=== PATIENT | male | born 1960 | race Caucasian/White ===

== ENCOUNTER 2017-01-21 18:42 | Emergency (ER) | payer OTHER ==
[2017-01-21] MEDS ORDERED: Albuterol 0.083% 2.5 MG/3 ML Neb Soln NEB ONE (19:45)
[2017-01-21] MEDS ORDERED: methylPREDNISolone Sodium Succinate 125 MG/2 ML SDV IVPUSH ONE (19:45)
[2017-01-21 20:03] LABS: CHLORIDE,CL 104 mmol/L (101-111); SODIUM,NA 137 mmol/L (135-145)
[2017-01-21 20:16] VITALS: BP 130/60
[2017-01-21] MEDS ORDERED: Potassium Chloride 10 MEQ Tab.ER PO ONE (20:30)
--- NOTE | 2017-01-21 20:45 | EDM.PDOC ---
ED HPI GENERAL MEDICAL PROBLEM - General Chief Complaint: Allergic Reaction Stated Complaint: ALERGIC REACTION [id number] Time Seen by Provider: 01/21/17 19:10 Source of Information: Reports: Patient History Limitations: Reports: No Limitations - History of Present Illness INITIAL COMMENTS - FREE TEXT/NARRATIVE: C/o difficulty swallowing and having a hard time catching his breath, similar to previous allergic reactions, Was seen earlier in clinic today with similar sx and treated with steroid and given inhaler. Some improvement after but sx returned while on traveling down gravel road. Admits midsteranal tightnes lasting few seconds. Usually able to ride bike daily. No difficulty with shoveling fill and gravel earlier today. Question if reaction to dog. 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: Other (see below) Other Treatments AUTOMOBILE MECHANIC ASSISTANT: prescribed meds - Related Data Allergies Allergy/AdvReac Type Severity Reaction Status Date / Time cetirizine Allergy Cannot Verified 08/06/13 11:26 Remember erythromycin base Allergy Cannot Verified 08/06/13 11:26 [Erythromycin Base] Remember Penicillins Allergy Cannot Verified 08/06/13 12:27 Remember terfenadine Allergy Cannot Verified 08/06/13 11:26 Remember Home Meds: Home Meds Ascorbic Acid [Acerola C] 500 mg PO 08/06/13 [History] Aspirin [Abhinav Chewable Aspirin] 81 mg PO 08/06/13 [History] Cholecalciferol (Vitamin D3) [Cholecalciferol] 1 gm MC 08/06/13 [History] Coconut Oil 1,000 mg PO 08/06/13 [History] Famciclovir [Famvir] 500 mg PO 08/06/13 [History] Irbesartan/Hydrochlorothiazide [Avalide 300-12.5 MG] 1 tab PO DAILY 08/06/13 [ History] Multivitamin [Men's Multi-Vitamin] 1 each PO 08/06/13 [History] [place]-3 Fatty Acids [[place]-3] 100 mg PO 08/06/13 [History] amLODIPine [Norvasc] 10 mg PO DAILY 08/06/13 [History] Brio Inhaler 01/21/17 [History] Levocetirizine Dihydrochloride [Xyzal] 5 mg PO 01/21/17 [History] Prednisone 01/21/17 [History] Past Medical History - Past Health History Medical/Surgical History: Denies Medical/Surgical History HEENT History: Reports: Impaired Vision Other HEENT History: wears corrective lenses Cardiovascular History: Reports: High Cholesterol, Hypertension Respiratory History: Reports: None Gastrointestinal History: Reports: GERD Genitourinary History: Reports: Renal Calculus Musculoskeletal History: Reports: None Neurological History: Reports: None Psychiatric History: Reports: None Endocrine/Metabolic History: Reports: None Hematologic History: Reports: None Oncologic (Cancer) History: Reports: None Dermatologic History: Reports: None - Infectious Disease History Infectious Disease History: Reports: None - Past Surgical History GI Surgical History: Reports: Hernia Repair/Other Male Surgical History: Reports: Lithotripsy (ESWL), TURP-Transurethral Resection of Prostate Social & Family History - Family History Family Medical History: Noncontributory - Tobacco Use Smoking Status *Q: Never Smoker Second Hand Smoke Exposure: No - Caffeine Use Caffeine Use: Reports: None - Alcohol Use Days Per Week of Alcohol Use: 0 - Recreational Drug Use Recreational Drug Use: No Drug Use in Last 12 Months: No - Living Situation & Occupation Living situation: Reports: Occupation: Employed ED ROS ALLERGIC REACTION - Review of Systems Review Of Systems: See Below Constitutional: Reports: No Symptoms HEENT: Reports: Sinus Problem. Denies: Throat Pain Respiratory: Reports: No Symptoms Cardiovascular: Reports: No Symptoms GI/Abdominal: Reports: No Symptoms : Reports: No Symptoms Musculoskeletal: Reports: No Symptoms Skin: Reports: No Symptoms. Denies: Rash Psychiatric: Reports: Anxiety Immunologic: Reports: Environmental Allergy ED EXAM GENERAL NO PERIP PULSE - Physical Exam Exam: See Below Exam Limited By: No Limitations General Appearance: Alert, Anxious Eye Exam: Bilateral Eye: EOMI, PERRL Ears: Normal External Exam Nose: Normal Inspection Throat/Mouth: Normal Inspection, Normal Voice, No Airway Compromise Head: Atraumatic, Normocephalic Neck: Normal Inspection, Supple, Non-Tender, Full Range of Motion Respiratory/Chest: No Respiratory Distress, Lungs Clear, Decreased Breath Sounds Cardiovascular: Normal Peripheral Pulses GI/Abdominal: Normal Bowel Sounds Neurological: Alert, Oriented Psychiatric: Normal Affect Skin Exam: Warm, Dry, Intact, Normal Color Course - Vital Signs Last Recorded V/S: Last Vital Signs Temp 98.8 F 01/21/17 20:15 Pulse 68 01/21/17 20:15 Resp 18 01/21/17 20:15 BP 130/60 01/21/17 20:15 Pulse Ox 96 01/21/17 20:15 - Orders/Labs/Meds Orders: Active Orders 24 hr Category Date Time Status EKG 12 Lead [EKG Documentation Completion] [RC] URGENT Care 01/21/17 19:15 Active RT Aerosol Therapy [RC] ASDIRECTED Care 01/21/17 19:45 Active Labs: Laboratory Tests 01/21/17 01/21/17 01/21/17 Range/Units 19:35 19:35 19:35 WBC 9.3 (5.0-10.0) 10^3/uL RBC 5.78 (4.6-6.2) 10^6/uL Hgb 14.7 (14.0-18.0) g/dL Hct 43.7 (40.0-54.0) % MCV 75.6 L (80-100) fL MCH 25.4 L (27.0-34.0) pg MCHC 33.6 (33.0-35.0) g/dL Plt Count 221 (150-450) 10^3/uL Neut % (Auto) 91.8 H (42.2-75.2) % Lymph % (Auto) 7.9 L (20.5-50.1) % [place] % (Auto) 0.3 L (2-8) % Eos % (Auto) 0.0 L (1.0-3.0) % Baso % (Auto) 0.0 (0.0-1.0) % Sodium 137 (135-145) mmol/L Potassium 3.2 L (3.6-5.0) mmol/L Chloride 104 (101-111) mmol/L Carbon Dioxide 21.0 (21.0-31.0) mmol/L Anion Gap 15.2 BUN 18 (7-18) mg/dL Creatinine 0.9 (0.6-1.3) mg/dL Est Cr Clr Drug Dosing 101.11 mL/min Estimated GFR (MDRD) > 60 BUN/Creatinine Ratio 20.00 Glucose 193 H (74-105) mg/dL Calcium 9.8 (8.4-10.2) mg/dl Total Bilirubin 0.7 (0.2-1.0) mg/dL AST 24 (10-42) IU/L ALT 27 (10-60) IU/L Alkaline Phosphatase 64 (42-121) IU/L Troponin I < 0.02 (0.00-0.02) ng/ml C-Reactive Protein < 0.5 (0.0-1.3) mg/dL Total Protein 7.8 (6.7-8.2) g/dl Albumin 4.5 (3.2-5.5) g/dl Globulin 3.3 Albumin/Globulin Ratio 1.36 Meds: Medications Discontinued Medications Generic Name Dose Route Start Last Admin Trade Name [place] PRN Reason Stop Dose Admin Albuterol 2.5 mg 01/21/17 19:45 01/21/17 20:41 Proventil Neb Soln NEB 01/21/17 19:46 2.5 mg ONETIME ONE Administration Methylprednisolone Sodium Succinate 125 mg 01/21/17 19:45 01/21/17 21:06 Solu-Medrol IVPUSH 01/21/17 19:46 125 mg ONETIME ONE Administration Potassium Chloride 10 meq 01/21/17 20:30 01/21/17 20:42 Klor-Con 10 PO 01/21/17 20:31 10 meq ONETIME ONE Administration - Re-Assessments/Exams Free Text/Narrative Re-Assessment/Exam: 01/22/17 04:44 Symptoms resoving foollowing albuterol neb and repeat Solu-medrol. Departure - Departure Time of Disposition: 21:08 Disposition: Home, Self-Care 01 Condition: good Clinical Impression: Allergic reaction Qualifiers: Encounter type: subsequent encounter Qualified Code(s): T78.40XD - Allergy, unspecified, subsequent encounter - Discharge Information Instructions: Anaphylactic Reaction Referrals: PCP,None [Primary Care Provider] - Forms: ED Department Discharge Additional Instructions: Continue medrol dose pack as ordered inhaler as directed benadryl 25mg every 6 hours as needed clinic follow up on Tuesday - My Orders Last 24 Hours: My Active Orders 01/21/17 19:15 EKG 12 Lead [EKG Documentation Completion] [RC] URGENT 01/21/17 19:45 RT Aerosol Therapy [RC] ASDIRECTED - Assessment/Plan Last 24 Hours: My Active Orders 01/21/17 19:15 EKG 12 Lead [EKG Documentation Completion] [RC] URGENT 01/21/17 19:45 RT Aerosol Therapy [RC] ASDIRECTED
--- NOTE | 2017-02-25 12:48 | EKG ---
01/21/2017 - RIMMA RODRÍGUEZ - A 12-lead EKG shows normal sinus rhythm with heart rate of 68. No significant ST elevation or ST depression noted on this 12-lead EKG. Nonspecific ST changes noted on lead AVR. [facility] /[id number]
== END 2017-01-21 21:18 | disposition home or self-care (01) ==
LOC: DL.ED 18:42
DX: T78.40XD Allergy, unspecified, subsequent encounter (principal); E78.00 Pure hypercholesterolemia, unspecified; I10 Essential (primary) hypertension; K21.9 Gastro-esophageal reflux disease without esophagitis; Z88.8 Allergy status to other drugs, medicaments and biological substances; Z88.0 Allergy status to penicillin; Z79.82 Long term (current) use of aspirin; Z79.899 Other long term (current) drug therapy
CPT/HCPCS: 36415; 71020; 80053; 84484; 85025; 86140; 93005; 96374; 99284; A9270; J2930; J7620

== ENCOUNTER → 2018-12-13 | Outpatient (CLI) | payer OTHER ==
[2018-12-13 10:51] LABS: ANION GAP 14.6; CHLORIDE,CL 105 mmol/L (101-111); SODIUM,NA 138 mmol/L (135-145)
== END ==
LOC: DL.CLIN 07:40
PROVIDERS: ATTEND Nurse Practitioner
DX: Z12.5 Encounter for screening for malignant neoplasm of prostate (principal); I10 Essential (primary) hypertension; R73.09 Other abnormal glucose
CPT/HCPCS: 80053; 80061; 83036; 85025; G0103

== ENCOUNTER 2019-11-01 04:23 | Emergency (ER) | payer OTHER ==
[2019-11-01] MEDS ORDERED: Aspirin 81 MG Tab.Chew PO ONE (04:38)
[2019-11-01] MEDS ORDERED: Nitroglycerin 0.4 MG Tab.SL SL ONE (04:49)
--- NOTE | 2019-11-01 04:55 | EDM.PDOC ---
<ShresthaDick Florentino - Last Filed: 11/01/19 05:14> ED HPI GENERAL MEDICAL PROBLEM - General Chief Complaint: Chest Pain Stated Complaint: CHEST PAIN Time Seen by Provider: 11/01/19 04:45 Source of Information: Reports: Patient History Limitations: Reports: No Limitations - History of Present Illness INITIAL COMMENTS - FREE TEXT/NARRATIVE: This 59 yo male patient reports to the ED with a sudden onset of chest tightness that woke him up from sleep. The patient reports woke up from sleep, took a drink of water, but continued to have chest tightness. The patient reports no previous cardiac complications or problems. Onset: Today Duration: Minutes:, Constant Location: Reports: Chest Quality: Reports: Pressure Severity: Moderate Improves with: Reports: None Worsens with: Reports: None Context: Reports: Other Associated Symptoms: Reports: No Other Symptoms Mid-Sternal Chest Pain Score (Numeric/FACES): 5 - Related Data Allergies Allergy/AdvReac Type Severity Reaction Status Date / Time cetirizine Allergy Cannot Verified 11/01/19 04:29 Remember erythromycin base Allergy Cannot Verified 11/01/19 04:29 [Erythromycin Base] Remember Penicillins Allergy Cannot Verified 11/01/19 04:29 Remember terfenadine Allergy Cannot Verified 11/01/19 04:29 Remember Home Meds: Home Meds Ascorbic Acid [Acerola C] 500 mg PO DAILY 08/06/13 [History] Aspirin [Abhinav Chewable Aspirin] 81 mg PO DAILY 08/06/13 [History] Cholecalciferol (Vitamin D3) [Cholecalciferol] 1 gm MC DAILY 08/06/13 [History] Coconut Oil 1,000 mg PO DAILY 08/06/13 [History] Irbesartan/Hydrochlorothiazide [Avalide 300-12.5 MG] 1 tab PO DAILY 08/06/13 [ History] Multivitamin [Men's Multi-Vitamin] 1 each PO DAILY 08/06/13 [History] [place]-3 Fatty Acids [[place]-3] 100 mg PO DAILY 08/06/13 [History] amLODIPine [Norvasc] 10 mg PO DAILY 08/06/13 [History] Montelukast Sodium [Singulair] 10 mg PO DAILY 11/01/19 [History] Tamsulosin HCl [Flomax] 0.4 mg PO DAILY 11/01/19 [History] Past Medical History - Past Health History Medical/Surgical History: Denies Medical/Surgical History HEENT History: Reports: Impaired Vision Other HEENT History: wears corrective lenses Cardiovascular History: Reports: High Cholesterol, Hypertension Respiratory History: Reports: None Gastrointestinal History: Reports: GERD Genitourinary History: Reports: Renal Calculus Musculoskeletal History: Reports: None Neurological History: Reports: None Psychiatric History: Reports: None Endocrine/Metabolic History: Reports: None Hematologic History: Reports: None Oncologic (Cancer) History: Reports: None Dermatologic History: Reports: None - Infectious Disease History Infectious Disease History: Reports: None - Past Surgical History GI Surgical History: Reports: Hernia Repair/Other Male Surgical History: Reports: Lithotripsy (ESWL), TURP-Transurethral Resection of Prostate Social & Family History - Family History Family Medical History: Noncontributory - Tobacco Use Smoking Status *Q: Unknown Ever Smoked Second Hand Smoke Exposure: No - Caffeine Use Caffeine Use: Reports: Soda, Tea - Recreational Drug Use Recreational Drug Use: No - Living Situation & Occupation Living situation: Reports: Occupation: Employed ED ROS GENERAL - Review of Systems Review Of Systems: Comprehensive ROS is negative, except as noted in HPI. ED EXAM, GENERAL - Physical Exam Exam: See Below Exam Limited By: No Limitations General Appearance: Alert, WD/WN, Anxious, Moderate Distress Eye Exam: Bilateral Eye: EOMI, Normal Inspection, PERRL Ears: Normal External Exam, Normal Canal, Hearing Grossly Normal, Normal TMs Nose: Normal Inspection, Normal Mucosa, No Blood Throat/Mouth: Normal Inspection, Normal Lips, Normal Teeth, Normal Gums, Normal Oropharynx, Normal Voice, No Airway Compromise Head: Atraumatic, Normocephalic Neck: Normal Inspection, Supple, Non-Tender, Full Range of Motion Respiratory/Chest: No Respiratory Distress, Lungs Clear, Normal Breath Sounds, No Accessory Muscle Use, Chest Non-Tender Cardiovascular: Normal Peripheral Pulses, Regular Rate, Rhythm, No Edema, No Gallop, No JVD, No Murmur, No Rub GI/Abdominal: Normal Bowel Sounds, Soft, Non-Tender, No Organomegaly, No Distention, No Abnormal Bruit, No Mass (Male) Exam: Deferred Rectal (Males) Exam: Deferred Back Exam: Normal Inspection, Full Range of Motion, NT Extremities: Normal Inspection, Normal Range of Motion, Non-Tender, Normal Capillary Refill, No Pedal Edema Neurological: Alert, Oriented, CN II-XII Intact, Normal Cognition, Normal Gait, Normal Reflexes, No Motor/Sensory Deficits Psychiatric: Normal Affect, Normal Mood Skin Exam: Warm, Dry, Intact, Normal Color, No Rash Lymphatic: No Adenopathy Course - Vital Signs Last Recorded V/S: Last Vital Signs Temp 98.2 F 11/01/19 05:53 Pulse 62 11/01/19 08:13 Resp 60 H 11/01/19 07:17 BP 163/81 H 11/01/19 08:13 Pulse Ox 97 11/01/19 07:17 - Orders/Labs/Meds Orders: Active Orders 24 hr Category Date Time Status EKG Documentation Completion [RC] ROUTINE Care 11/01/19 08:30 Active EKG Documentation Completion [RC] URGENT Care 11/01/19 04:38 Active Cardiac [Heart Healthy Diet] [DIET] Diet 11/01/19 Breakfast Active INR,PT,PROTHROMBIN TIME [COAG] Stat Lab 11/01/19 09:20 Ordered PTT,PARTIAL THROMBOPLSTIN TIME [COAG] Stat Lab 11/01/19 09:20 Ordered Heparin Sodium/0.45% NaCl [Heparin 25,000 Units in 1/2 Med 11/01/19 09:30 Ordered NS 500 ML] 25,000 units in 500 ml IV TITRATE Medication Orders Heparin Sodium/Sodium Chloride (Heparin 25,000 Units In 1/2 Ns 500 Ml) 25,000 units in 500 mls @ 32.267 mls/hr IV TITRATE JOAQUINA; Protocol Labs: Laboratory Tests 11/01/19 11/01/19 11/01/19 Range/Units 04:30 04:30 08:41 WBC 6.9 (5.0-10.0) 10^3/uL RBC 5.53 (4.6-6.2) 10^6/uL Hgb 14.5 (14.0-18.0) g/dL Hct 42.9 (40.0-54.0) % MCV 77.6 L (80-100) fL MCH 26.2 L (27.0-34.0) pg MCHC 33.8 (33.0-35.0) g/dL Plt Count 198 (150-450) 10^3/uL Neut % (Auto) 49.4 (42.2-75.2) % Lymph % (Auto) 36.6 (20.5-50.1) % [place] % (Auto) 10.1 H (2-8) % Eos % (Auto) 3.6 H (1.0-3.0) % Baso % (Auto) 0.3 (0.0-1.0) % Sodium 143 (136-145) mmol/L Potassium 3.3 L (3.5-5.1) mmol/L Chloride 105 (98-107) mmol/L Carbon Dioxide 27 (21-32) mmol/L Anion Gap 14.3 H (7-13) mEq/L BUN 16 (7-18) mg/dL Creatinine 0.91 (0.70-1.30) mg/dL Est Cr Clr Drug Dosing 96.34 mL/min Estimated GFR (MDRD) > 60 BUN/Creatinine Ratio 17.6 (No establ ref range) Glucose 122 H (74-99) mg/dL Calcium 8.5 (8.5-10.1) mg/dL Total Bilirubin 0.3 (0.2-1.0) mg/dL AST 12 L (15-37) U/L ALT 31 (16-63) U/L Alkaline Phosphatase 65 (46-116) U/L Troponin I < 0.017 0.702 H* (0.000-0.056) ng/mL Total Protein 7.1 (6.4-8.2) g/dL Albumin 3.7 (3.4-5.0) g/dL Globulin 3.4 Albumin/Globulin Ratio 1.1 Meds: Medications Generic Name Dose Route Start Last Admin Trade Name Freq PRN Reason Stop Dose Admin Heparin Sodium/Sodium Chloride 25,000 units in 500 mls @ 32.267 mls/hr 09:30 Heparin 25,000 Units In 1/2 Ns 500 Ml IV TITRATE JOAQUINA Protocol 12 UNITS/KG/HR Discontinued Medications Generic Name Dose Route Start Last Admin Trade Name Freq PRN Reason Stop Dose Admin Aspirin 324 mg 11/01/19 04:38 11/01/19 04:43 Aspirin PO 11/01/19 04:39 324 mg ONETIME ONE Administration Heparin Sodium (Porcine) 4,000 units 11/01/19 09:19 Heparin Sodium IVPUSH 11/01/19 09:20 .BOLUS ONE Morphine Sulfate 2 mg 11/01/19 05:13 Morphine IVPUSH 11/01/19 05:14 ONETIME ONE Nitroglycerin 0.4 mg 11/01/19 04:49 11/01/19 04:55 Nitrostat SL 11/01/19 04:50 0.4 mg ONETIME ONE Administration - Re-Assessments/Exams Free Text/Narrative Re-Assessment/Exam: 11/01/19 05:14 The patient reports his chest pressure went from a 5/10 to a 1/10 after the Nitro. An order was placed for Morphine (2 mg). The will be placed in extended stay for a repeat troponin Departure - Departure Disposition: DC/Tfer to Acute Hospital 02 Clinical Impression: Non-ST elevated myocardial infarction (non-STEMI) Forms: ED Department Discharge, Interfacility Transfer EMTALA Sepsis Event Note - Evaluation Sepsis Screening Result: No Definite Risk - Focused Exam Vital Signs: Vital Signs Temp Pulse Resp BP BP Pulse Ox 11/01/19 08:13 62 163/81 H 11/01/19 07:17 60 H 151/80 H 97 11/01/19 05:53 98.2 F 60 16 146/66 H 94 L 11/01/19 04:55 185/86 H 11/01/19 04:33 99.0 F 71 17 172/82 H 97 Date Exam was Performed: 11/01/19 Time Exam was Performed: 05:14 - My Orders Last 24 Hours: My Active Orders 11/01/19 09:20 INR,PT,PROTHROMBIN TIME [COAG] Stat PTT,PARTIAL THROMBOPLSTIN TIME [COAG] Stat 11/01/19 09:30 Heparin Sodium/0.45% NaCl [Heparin 25,000 Units in 1/2 NS 500 ML] 25,000 units in 500 ml IV TITRATE - Assessment/Plan Last 24 Hours: My Active Orders 11/01/19 09:20 INR,PT,PROTHROMBIN TIME [COAG] Stat PTT,PARTIAL THROMBOPLSTIN TIME [COAG] Stat 11/01/19 09:30 Heparin Sodium/0.45% NaCl [Heparin 25,000 Units in 1/2 NS 500 ML] 25,000 units in 500 ml IV TITRATE <Valentino Jorgensen - Last Filed: 11/01/19 09:42> EKG INTERPRETATION EKG Interpretation Comments: No changes on repeat EKG after 4 hrs. Course - Re-Assessments/Exams Free Text/Narrative Re-Assessment/Exam: 11/01/19 09:10 No beds available at [facility]: on total diversion. Pt accepted for transfer to [facility] by Dr. Hill. Pt remains symptom free. Heparin bolus and drip initiated upon elevated 4 hour Troponin of 0.7 up from 0.017. Departure - Departure Time of Disposition: 09:41 Reason for Transfer *Q: Other Condition: Serious Sepsis Event Note - Focused Exam Date Exam was Performed: 11/01/19 Time Exam was Performed: 09:37
[2019-11-01 05:07] LABS: ANION GAP 14.3 mEq/L (7-13); CHLORIDE,CL 105 mmol/L (98-107); SODIUM,NA 143 mmol/L (136-145)
[2019-11-01] MEDS ORDERED: Morphine 2 MG/ML SYRINGE IVPUSH ONE (05:13)
[2019-11-01 08:14] VITALS: BP 163/81; PULSE 62
[2019-11-01] MEDS ORDERED: Heparin Sodium 5,000 Units/ML Vial IVPUSH ONE (09:19)
[2019-11-01] MEDS ORDERED: Heparin Sodium/0.45% NaCl 25,000 UNITS/500 ML BAG IV SCH (09:30)
[2019-11-01 10:05] LABS: PTT,PARTIAL THROMBOPLSTIN TIME 24.7 SEC (22.0-34.0)
== END 2019-11-01 10:20 ==
LOC: DL.ED 04:23
DX: I21.4 Non-ST elevation (NSTEMI) myocardial infarction (principal); I10 Essential (primary) hypertension; Z88.0 Allergy status to penicillin; Z88.1 Allergy status to other antibiotic agents; Z79.82 Long term (current) use of aspirin; Z79.899 Other long term (current) drug therapy
CPT/HCPCS: 36415; 71045; 80053; 84484; 85025; 85610; 85730; 93005; 96365; 99285; A9270; J1644

== ENCOUNTER 2023-05-25 22:38 | Emergency (ER) | payer OTHER ==
[2023-05-25] MEDS: Albuterol/Ipratropium 3.0-0.5 MG/3 ML Neb Soln NEB ONE (22:58)
[2023-05-25 23:10] VITALS: BP 143/100; PULSE 60
[2023-05-25] MEDS: methylPREDNISolone Sodium Succinate 125 MG/2 ML SDV IM ONE (23:34)
[2023-05-25 23:41] LABS: CORONAVIRUS COVID-19 NAA NEGATIVE (NEGATIVE); INFLUENZA A NAA NEGATIVE (NEGATIVE); INFLUENZA B NAA NEGATIVE (NEGATIVE)
[2023-05-25] MEDS: Take Home: Albuterol/Ipratropium 3.0-0.5 MG/3 ML Neb Soln, 5 Neb Pack NEB ONE (23:46)
== END 2023-05-26 00:50 | disposition home or self-care (01) ==
LOC: DL.ED 22:38
DX: T84.218A Breakdown (mechanical) of internal fixation device of other bones, initial encounter (principal); J45.909 Unspecified asthma, uncomplicated; I10 Essential (primary) hypertension; Z88.8 Allergy status to other drugs, medicaments and biological substances; Z88.1 Allergy status to other antibiotic agents; Z88.0 Allergy status to penicillin; Z79.82 Long term (current) use of aspirin; Z79.899 Other long term (current) drug therapy; Z20.822 Contact with and (suspected) exposure to COVID-19
CPT/HCPCS: 0240U; 70360; 71046; 87081; 87430; 96372; 99285; A9270; J2930; 99284; J7620-GY

== ENCOUNTER 2023-11-19 18:14 | Emergency (ER) | payer OTHER ==
[2023-11-19] MEDS: Sodium Chloride 0.9% 10 ML Syringe FLUSH PRN (18:45)
[2023-11-19] MEDS: Metoprolol Tartrate 5 MG/5 ML SDV IVPUSH ONE (18:46)
[2023-11-19 18:50] LABS: BASOPHILS PERCENT AUTO 0.2 % (0.0-1.0); HEMATOCRIT 43.7 % (40.0-54.0); HEMOGLOBIN 14.3 g/dL (14.0-18.0); LYMPHOCYTES PERCENT AUTO 32.1 % (20.5-50.1); MEAN CORPUSCULAR HGB CONC 32.7 g/dL (33.0-35.0); MEAN CORPUSCULAR VOLUME 79.6 fL (80-100); MONOCYTES PERCENT AUTO 9.5 % (2-8); NEUTROPHILS PERCENT AUTO 56.2 % (42.2-75.2); PLATELET COUNT,PLT 195 10^3/uL (150-450); RED BLOOD CELL COUNT 5.49 10^6/uL (4.6-6.2); WHITE BLOOD CELL COUNT,WBC 8.5 10^3/uL (5.0-10.0)
[2023-11-19 19:08] LABS: A/G RATIO 1.1; ALBUMIN 3.6 g/dL (3.4-5.0); ANION GAP 14.2 mEq/L (7-13); BILIRUBIN TOTAL 0.3 mg/dL (0.2-1.0); BUN/CREATININE RATIO 11.7 (No establ ref range); CREATININE 1.03 mg/dL (0.70-1.30); EST CRCL DRUG DOSING (CG) 76.15 mL/min; POTASSIUM,K 3.2 mmol/L (3.5-5.1)
[2023-11-19 19:12] VITALS: BP 145/72; PULSE 58
[2023-11-19 19:40] LABS: CORONAVIRUS COVID-19 NAA NEGATIVE (NEGATIVE); INFLUENZA A NAA NEGATIVE (NEGATIVE); INFLUENZA B NAA NEGATIVE (NEGATIVE); RESPIRATORY SYNCYTIAL VIR NAA NEGATIVE (NEGATIVE)
[2023-11-19] MEDS: methylPREDNISolone Sodium Succinate 40 MG/1 ML SDV IVPUSH ONE (19:57)
[2023-11-19] MEDS: diphenhydrAMINE 50 MG/ML SDV IVPUSH ONE (19:57)
== END 2023-11-19 20:30 | disposition home or self-care (01) ==
LOC: DL.ED 18:14
DX: R07.89 Other chest pain (principal); R06.02 Shortness of breath; I10 Essential (primary) hypertension; I25.2 Old myocardial infarction; Z88.8 Allergy status to other drugs, medicaments and biological substances; Z88.1 Allergy status to other antibiotic agents; Z88.0 Allergy status to penicillin; Z79.82 Long term (current) use of aspirin; Z79.899 Other long term (current) drug therapy
CPT/HCPCS: 0241U; 36415; 71045; 80053; 83605; 84484; 85025; 93005; 93010; 96374; 96375; 99284; J1200; J2920; J3490

== ENCOUNTER 2025-05-24 06:49 | Day surgery (SDC) | payer OTHER ==
[2025-05-24] MEDS ORDERED: Lactated Ringers 1,000 ML IV ONE (06:50)
[2025-05-24] MEDS ORDERED: Propofol 200 MG/20 ML SDV IV ONE (06:50)
[2025-05-24] MEDS: Lactated Ringers 1,000 ML IV SCH (07:20)
[2025-05-24 09:33] VITALS: BP 138/56; PULSE 71
== END 2025-05-24 09:05 | disposition home or self-care (01) ==
LOC: DL.ENDO 06:49
PROVIDERS: ATTEND Internal Medicine Gastroenterology
DX: Z12.11 Encounter for screening for malignant neoplasm of colon (principal); K64.8 Other hemorrhoids; K57.30 Diverticulosis of large intestine without perforation or abscess without bleeding; E66.09 Other obesity due to excess calories; E78.00 Pure hypercholesterolemia, unspecified; E11.9 Type 2 diabetes mellitus without complications; I10 Essential (primary) hypertension; Z88.8 Allergy status to other drugs, medicaments and biological substances; Z68.39 Body mass index [BMI] 39.0-39.9, adult
CPT/HCPCS: 00812; 45378; J2704; J7120

== ENCOUNTER 2025-08-01 23:53 | Emergency (ER) | payer OTHER ==
[2025-08-02 00:09] VITALS: BP 148/54; PULSE 75
== END 2025-08-02 00:25 | disposition home or self-care (01) ==
LOC: DL.ED 23:53
DX: M70.21 Olecranon bursitis, right elbow (principal); E78.00 Pure hypercholesterolemia, unspecified; I10 Essential (primary) hypertension; K21.9 Gastro-esophageal reflux disease without esophagitis; E11.9 Type 2 diabetes mellitus without complications; E66.9 Obesity, unspecified; Z88.1 Allergy status to other antibiotic agents; Z79.899 Other long term (current) drug therapy; Z79.51 Long term (current) use of inhaled steroids; Z79.82 Long term (current) use of aspirin; Z79.84 Long term (current) use of oral hypoglycemic drugs; Z68.39 Body mass index [BMI] 39.0-39.9, adult
CPT/HCPCS: 99283; A9270; 99284